=== PATIENT | female | born 1960 | race Caucasian/White ===

== ENCOUNTER 2017-08-18 21:41 | Emergency (ER) | payer OTHER ==
[2017-08-18] MEDS ORDERED: Tetracaine HCl/PF 0.5% 4 ML Bottle EYERT ONE (22:15)
--- NOTE | 2017-08-18 22:37 | EDM.PDOC ---
ED HPI GENERAL MEDICAL PROBLEM - General Chief Complaint: Eye Problems Stated Complaint: R EYE IRRITATION Time Seen by Provider: 08/18/17 22:15 Source of Information: Reports: Patient History Limitations: Reports: No Limitations - History of Present Illness INITIAL COMMENTS - FREE TEXT/NARRATIVE: This lady was walking and her nap culture and got poked by a stick just prior to arrival. She says it feels like a foreign body up under her upper right lid. Vision is a little blurry. 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 partial hysterectomy Oncologic Surgical History: Reports: Biopsy of Breast Social & Family History - Tobacco Use Smoking Status *Q: Never Smoker - Caffeine Use Caffeine Use: Reports: Soda - Recreational Drug Use Recreational Drug Use: No ED ROS GENERAL - Review of Systems Review Of Systems: ROS reveals no pertinent complaints other than HPI. ED EXAM GENERAL W FULL EYE - Physical Exam Exam: See Below Exam Limited By: No Limitations General Appearance: Alert, WD/WN, Mild Distress Eye Exam: Bilateral Eye: Other (There is some slight injection of the right conjunctiva. The lids look normal. I elevated the upper lid and examined it I don't see any foreign body. Tetracaine was applied to the right eye followed by forcing staining. This shows a moderate size corneal abrasion at about the 4 o' clock position. Does not affect the axis of vision. There was no penetration of the globe and the anterior chamber appears to be normal the eye was rinsed with saline I again reviewed up under the upper lid and irrigated there C any foreign body) Course - Vital Signs Last Recorded V/S: Last Vital Signs Temp 36.8 C 08/18/17 22:06 Pulse 78 08/18/17 22:06 Resp 18 08/18/17 22:06 BP 109/77 08/18/17 22:06 Pulse Ox 93 L 08/18/17 22:06 - Orders/Labs/Meds Meds: Medications Discontinued Medications Generic Name Dose Route Start Last Admin Trade Name Marianne PRN Reason Stop Dose Admin Tetracaine HCl 1 ml 08/18/17 22:15 Tetracaine 0.5% Steri-Unit Mita EYERT 08/18/17 22:16 ASDIRECTED ONE - Re-Assessments/Exams Free Text/Narrative Re-Assessment/Exam: 08/18/17 22:36 See history of present illness Departure - Departure Time of Disposition: 22:36 Disposition: Home, Self-Care 01 Condition: Fair Clinical Impression: Corneal abrasion - Discharge Information Referrals: PCP,None [Primary Care Provider] - Additional Instructions: Apply the erythromycin ointment at night for additional comfort. During the day just use the gentamicin eyedrops. Healing should take place within about 2 or 3 days. If you notice her vision is getting worse then be sure to see an crystal cutter or sheet sorter or return to the ER
== END 2017-08-18 22:43 | disposition home or self-care (01) ==
LOC: JP.ED 21:41
DX: S05.01XA Injury of conjunctiva and corneal abrasion without foreign body, right eye, initial encounter (principal); Z88.2 Allergy status to sulfonamides; W22.8XXA Striking against or struck by other objects, initial encounter
CPT/HCPCS: 99283; A9270